=== PATIENT | female | born 1935 | race Caucasian/White ===

== ENCOUNTER 2016-11-28 09:24 | Inpatient (IN) | payer OTHER ==
[2016-11-28] VITALS (15 sets, daily range): BP systolic 109–168; BP diastolic 44–79; PULSE 47–75; RESP 16–19; O2SAT 93–98
[~2016-11-28] VITALS: Ht 160 cm; Wt 89.3 kg
[~2016-11-28 09:24] MED LIST: ALEN70TA2 PO; Bupivacaine Liposome 1.3% 20 mL Inj INFILTRATE ONE; Clindamycin 900 mg/50 mL D5W IV ONE; FURO-128 PO; HYDR-3939 PO; LEVO88TA4 PO; LISI10TA PO; Lactated Ringer's 1,000 ML IV ONE; METO25TA99 PO; Vancomycin Inj 1,000 MG in IV Premix 1 EACH IV ONE
[2016-11-28] MEDS ORDERED: ACET325T51 PO (10:23)
--- NOTE | 2016-11-28 12:36 | PCM.HPANE ---
Patient Data Surgeon Admitting Provider: Attending Provider:Parviz Jara MD Primary Care Physician:Lory Linares MD Other Provider:Yu Shuklaingham Anesthesia Reason for Visit Right Knee Pain, Phx Right Knee Replacement RIGHT KNEE PAIN, PHX RIGHT KNEE REPLACEMENT Ht/WT & BMI Height (Feet): 5 Height (Inches): 3 Weight (Kilograms): 87.180 Body Mass Index 34.00 Allergies Coded Allergies: carvedilol (Verified Allergy, Unknown, UNKNOWN, 11/21/16) tomato (Verified Allergy, Unknown, UNKNOWN, 11/21/16) Penicillins (Verified Adverse Reaction, Severe, ITCHING, 11/21/16) amlodipine (Verified Adverse Reaction, Severe, EDEMA, 11/21/16) Uncoded Allergies: DUST/MOLDS (Adverse Reaction, Unknown, UNKNOWN, 11/21/16) Past Anesthesia History Anesthesia History: Denies:: Anesthesia Reactions, Malignant Hyperthermia Diabetes History Hx Diabetes?: No MRSA MRSA: No Medications Hypertension Medication: Yes (LASIX,HYDRALAZINE,LISINOPRIL) Home Meds Incl Beta Tavares: Yes Date Beta Tavares Taken: Nov 28, 2016 Time Beta Tavares Taken: 0600 Reported Medications Acetaminophen 325 Mg [id number] Mg PO Q4H PRN For Fever Ref 0 11/28/16 Metoprolol Succinate ER 25 Mg Tab.er.24h25 Mg PO DAILY Ref 0 11/21/16 Lisinopril 10 Mg Bdqrtu86 Mg PO DAILY 30 Days Ref 0 11/21/16 Levothyroxine 88 Mcg Tslfcd98 Mcg PO DAILY Ref 0 11/21/16 Hydralazine 25 Mg Lhehfe20 Mg PO BID Ref 0 11/21/16 Furosemide (Lasix)40 Mg Dbklzk49 Mg PO DAILY 30 Days Ref 0 11/21/16 Alendronate Sodium (Fosamax)70 Mg Ykixbm83 Mg PO WEEKLY 30 Days Ref 0 11/21/16 History History of ENT Problems?: Yes HEENT History: Positive for:: Sinus Problem (seasonal allergies) Denture Type: Partial- Upper Teeth Condition: Within Normal Limits Hx of Heart Problems?: Yes Cardiovascular History: Positive for:: Edema Hypertension Denies:: Heart Murmur Other Cardiac History: HX OF MILD ANEMIA Hx of Respiratory Problem?: No Respiratory History: Denies:: Use of C-PAP Machine Hx Neurologic Problems?: No Hx of GI Problems?: Yes Other GI Pertinent History: C/OF INTERMITTANT DIARRHEA Hx of Problems?: Yes Genitourinary History: Positive for:: HX of Hemodialysis (CHRONIC RENAL INSUFFICIENCY STAGE 3-4 (STABLE LAST 1 YR)) Other Pertinent History: HAS SEEN DR. ALBERTO IN CONSULT 03/2016-PLAN F/U 1 YR Female Hx: Denies:: Currently Skin History: Denies:: History Skin Disorders? Pressure Ulcers Hx Musculoskeletal Problems?: Yes Musculoskeletal History: Positive for:: Degenerative Joint Joint Replacement (S/P B/L TKA'S C/OF RT KNEE PAIN=CURRENT PROBLEM) Osteoarthritis (OSTEOPENIA) Hx of Psycho/Social Problems?: No Hx Surgeries?: Yes (B/L TKA'S,THYROIDECTOMY) Hx Any Other Health Problems?: Yes Other History: Positive for:: Cancer (THYROID) Thyroid Disease (S/P THYROIDECTOMY FOR CA) Denies:: Endocrine Disease Hospitalization Hx Diabetes: No Hx Alcohol Use: YesHave You Smoked inLast 12 mo: No Stop/Bang Treated for Sleep Apnea?: No Do You Have a CPAP Machine?: No S-Snoring: Do You Snore Loudly: No T-Tired: feel tired, fatigued: No O-Obsered: Observed not breath: No P-Blood Pressure: treated: Yes B- Body Mass Index > 35 kg/m2: No A- Age over 50: Yes N- Neck Large Circumference: No G- Gender Male: No WENDY Total Score: 2 WENDY Risk Assessment: Low Risk, <3 Yes Risk Assessment Category Category 1A: Patient has history of documented sleep apnea, and HAS NOT received any narcotic, sedative or anesthesia administration during this stay. Category 1B: Patient has history of documented sleep apnea, and HAS received any narcotic , sedative or anesthesia administration during this stay Category 2: Patient has SUSPECTED Obstructive Sleep Apnea, and HAS received any narcotic , sedative or anesthesia administration during this stay. Category 3: Patient has SUSPECTED Obstructive Sleep Apnea and HAS NOT received narcotic, sedative or anesthesia administration during this stay. Category 4: Outpatient in Procedural Areas with known sleep apnea or who screen positive for High Risk via the STOP/BANG questionnaire. Exam Exam Vital Signs Vital Signs Date Time Temp Pulse Resp B/P Pulse Ox O2 Delivery O2 Flow Rate FiO2 11/28/16 09:50 36.4 47 18 168/49 97 Room Air General Appearance: Oriented X3 HEENT/AIRWAY: MP 2 Lungs: Normal Air Movement Heart: Regular Rate/Rhythm Meds/Labs/Diagnostics Admission Meds Current Medications Vancomycin/0.9 % Sod Chloride 1000 mg/Premix 200 ml @ 133.333 mls/hr PREOP ONCE IV Last administered on 11/28/16 10:20; Start 11/28/16 at 06:00; Stop 03/07 at 07:29; Status DC Lactated Ringer's (Lr) 1,000 ml @ 120 mls/hr Q8H20M ONCE IV Last administered on 11/28/16 09:30; Start 11/28/16 at 05:00; Stop 11/28/16 at 13:19 Plan Impression Patient chart reviewed, patient interviewed and anesthestic plan with risks, benefits, and alternatives discussed, and informed consent obtained. ASA Physical Status: ASA3 Severe Disease Anesthetic Plan: GA, Regional Block Bene/Risks/Altern/Consents: Yes HP Complete Prior to Induction: Yes Jorje Peterson MD Nov 28, 2016 12:36
[2016-11-28] MEDS ORDERED: 0.9% Sodium Chloride 100 ML ONE (12:58)
[2016-11-28] MEDS ORDERED: Tranexamic Acid 100 mg/mL 10 mL Inj ONE (12:58)
[2016-11-28] MEDS ORDERED: Bupivacaine Liposome 1.3% 20 mL Inj ONE (12:59)
[2016-11-28] MEDS ORDERED: Lactated Ringer's 500 ML IV PRN (13:34)
[2016-11-28] MEDS ORDERED: Lactated Ringer's 1,000 ML IV SCH (13:34)
[2016-11-28] MEDS ORDERED: EPHEDrine Sulfate 50 mg/mL Inj IVPUSH PRN (13:35)
[2016-11-28] MEDS ORDERED: Phenylephrine 10,000 mCg/mL Inj IVPUSH PRN (13:35)
[2016-11-28] MEDS ORDERED: Dexamethasone 4 mg/mL Inj IVPUSH PRN (13:35)
[2016-11-28] MEDS ORDERED: fentaNYL-PF 50 mCg/mL 2 mL Inj IVPUSH PRN (13:35)
[2016-11-28] MEDS ORDERED: HYDROmorphone 1 mg/mL Inj IVPUSH PRN (13:35)
[2016-11-28] MEDS ORDERED: Ondansetron 2 mg/mL 2 mL Inj IVPUSH PRN ×2 (13:35→16:30)
[2016-11-28] MEDS ORDERED: MetoCLOpramide 5 mg/mL 2 mL Inj IVPUSH PRN ×2 (13:35→16:30)
[2016-11-28] MEDS ORDERED: Gentamicin 40 mg/mL 2 mL Inj IRRIGATION ONE (13:54)
[2016-11-28] MEDS ORDERED: Bupivacaine Liposome 1.3% 20 mL Inj INFILTRATE ONE (13:55)
[2016-11-28] MEDS ORDERED: Bupivacaine-MPF 0.25% 30 mL Inj INFILTRATE ONE (13:56)
[2016-11-28 16:21] LABS: APPEARANCE,URINE CLEAR (CLEAR,HAZY); COLOR,URINE STRAW (YELLOW); OCCULT BLOOD,URINE NEGATIVE (NEGATIVE); PH,URINE 6.5 (5.0-8.0); UROBILINOGEN,URINE NORMAL (NORMAL)
[2016-11-28] MEDS ORDERED: CeFAZolin Inj 2 GM in IV Premix 1 EACH IV SCH (16:30)
[2016-11-28] MEDS ORDERED: Vancomycin Dose per Pharmacist XX ONE (16:30)
[2016-11-28] MEDS ORDERED: Magnesium Hydroxide 10 mL Oral Concentration PO PRN ×2 (16:30→21:30)
[2016-11-28] MEDS ORDERED: diphenhydrAMINE 25 mg Capsule PO PRN ×2 (16:30→21:30)
[2016-11-28] MEDS ORDERED: Sodium Biphos-Phos 133 mL Enema RECTAL PRN ×2 (16:30→21:30)
[2016-11-28] MEDS ORDERED: Polyethylene Glycol (PEG) 17 Gm Powder PO PRN (16:30)
[2016-11-28] MEDS ORDERED: Ketorolac 15 mg/mL Inj IVPUSH PRN (16:30)
[2016-11-28] MEDS: Sodium Chloride LOK Flush 10 mL Syringe IV SCH (16:30)
--- NOTE | 2016-11-28 17:50 | DRSVH ---
PROCEDURE: X-RAY RIGHT KNEE, ONE OR TWO VIEWS ([id number]) INDICATIONS: POSTOP KNEE TECHNIQUE: 2 view(s) of the knee acquired. COMPARISON: Outside Film, CR, BILATERAL KNEE MIN 4VW, 08/12/2016, 13:20. FINDINGS: Bones: Patient is status post knee joint arthroplasty. Hardware components are in expected position s. There is a slight appearance of lucency surrounding the medial aspect of the tibial hardware comp onent. Visualized bony structures are intact. Soft tissues: Overlying postoperative changes are noted. IMPRESSION: Status post right knee arthroplasty revision. Slight asymmetric lucency surrounding the m edial aspect of the tibial hardware component. This could be projectional. However, recommend interva l followup is indicated. Dictated by: Jackie Hammer M.D. on 11/28/2016 at 17:47 Approved by: Jackie Hammer M.D. on 11/28/2016 at 17:48
[2016-11-28] MEDS: Senna-Docusate 8.6-50 mg Tablet PO SCH (20:47)
[2016-11-28] MEDS ORDERED: oxyCODONE-Acetamin 5-325 mg Tablet PO PRN (21:30)
[2016-11-28] MEDS ORDERED: Ondansetron 2 mg/mL 2 mL Inj IV PRN (21:30)
[2016-11-28] MEDS ORDERED: MetoCLOpramide 5 mg/mL 2 mL Inj IV PRN (21:30)
[2016-11-28] MEDS ORDERED: Alum-Mag Hydrox-Simeth 30 mL Suspension PO PRN (21:30)
[2016-11-28] MEDS: hydrOXYzine Pamoate 25 mg Capsule PO PRN (21:41)
[2016-11-28] MEDS: Lactated Ringer's 1,000 ML IV SCH (21:44)
[2016-11-28] MEDS: CeFAZolin Inj 2 GM in IV Premix 1 EACH IV SCH (21:45)
[2016-11-29] MEDS: Sodium Chloride LOK Flush 10 mL Syringe IV SCH ×3 (00:04→16:30)
[2016-11-29 01:23] VITALS: BP 135/55; PULSE 60; RESP 16; O2SAT 95
--- NOTE | 2016-11-29 02:07 | OP ---
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 POSTOPERATIVE DIAGNOSIS(ES): Loose tibial and femoral components. SURGEON: Parviz Jara MD. SKIN GRADER: Barbara Baumann PA-C. Almond Paste Molder required due to the major complexity of the operation. PROCEDURE: 1. Complex revision arthroplasty right total knee replacement. 2. Complete synovectomy. INDICATIONS: This woman has become very disabled due to a loose and malpositioned tibial component. She elects to proceed with revision, accepting the potential risks for complication, which includes, but is not limited to, infection, thromboembolic, neurovascular events, as well as potential for implant failure. PROCEDURE: The patient was prepped and draped in the usual sterile fashion. An anteromedial approach was made. The knee dissection was carried down. The tibia and femur were noted to be grossly loose. There was diffuse metallic staining of the synovium noted, marked deformity of the tibial component positioning noted. Following full lavage of the knee, the tibial component was carefully worked loose and removed. The polyethylene had been snapped out of place initially. The femoral component was driven off with a metallic . The tibial component had been in so much varus that the stem had worked its way out through a hole in the tibia. This was encountered. The canal was found. The cement plug was removed distally and reamers were placed distally, reaming up to 15 mm distally and this provided a stable base to broach for the medium metaphyseal sleeve, which was slowly worked into an ideal position. The tibia was then cut off the top of this, allowing support of the tibial component with the deficient medial side. A #4 tibial tray was chosen and trial reductions were performed with this through the metaphyseal sleeve. The final metaphyseal sleeve was impacted securely into an excellent position and was noted to be quite stable. The femoral canal was encountered, progressively reamed up to an 18. An 18 x 100 stem was utilized for placement of a provisional D component. Trial reduction was performed and the knee was noted to be quite tight in extension; and therefore, a revised distal femoral cut was made. The D component fit excellently, trial reduction excellent stability was encountered. Complete synovectomy was performed removing all metal stained synovium. The tourniquet was let down and hemostasis was achieved. This was after 90 minutes of tourniquet time. Tourniquet was then elevated again for cementation. All meniscal tissue, osteophytes and debris was removed from the knee. Pressurized lavage was followed by pressurized cementation of the components. Excess cement was removed during the curing process. Repeat trial reduction a 12 mm posterior stabilized poly was chosen. A 15 mm x 100 stem had been used on the tibia and an 18 mm x 100 stem utilized on the femoral side with LCCK instrumentation. Patient tolerated the procedure well. The tourniquet was let down, hemostasis was achieved, and a deep drain was placed. Deep closure with #2 Quill deep, followed by 2-0 Vicryl, 3-0, and a 4-0 intracuticular stitch. Steri-Strips applied. The patient was returned to the recovery room in stable condition. Tolerated procedure well. There were no complications.
[2016-11-29] MEDS: Ketorolac 15 mg/mL Inj IV SCH ×3 (02:32→14:30)
[2016-11-29] MEDS ORDERED: Vancomycin Inj 1,250 MG in 0.9% Sodium Chloride 250 ML IV ONE (03:00)
--- NOTE | 2016-11-29 05:02 | NUR ---
Admission Pt admitted to [facility] at 1830 from PACU. Rec'd report from off going dayshift nurse. Pt is post op right TKA revision. A/O x3, making needs known. Eating dinner just after arrival and tolerating PO intake with no c/o NV. Pt has NADINE wrap to right knee, CDI with hemovac clamped. States pain is 3/10 and tolerable. Orders reviewed and sent to pharmacy. IV patent, started IV fluids. Oriented to room, call light and bed controls. Downey cath patent draining clear alexander urine to gravity. Family at bedside. Encouraged cough and deep breathing. Care continues
[2016-11-29] MEDS: CeFAZolin Inj 2 GM in IV Premix 1 EACH IV SCH (05:19)
[2016-11-29 06:09] VITALS: BP 118/56; PULSE 64; RESP 16; O2SAT 94
[2016-11-29 06:54] LABS: BASOPHILS % (AUTO) 0.1 % (0-3); EOSINOPHILS % (AUTO) 0 % (0-5); MONOCYTES % (AUTO) 5.3 % (4-12); Mean Corpuscular Hemoglobin 29.1 pg (27.0-35.0); Mean Corpuscular Volume 90.6 fL (81-100); NEUTROPHILS % (AUTO) 86.3 % (40-74); Platelet Count 183 bil/L (150-400)
--- NOTE | 2016-11-29 07:39 | PCM.ANEP1 ---
Post Anesthesia PACU Phase 1 Assessment Vital Signs Vital Signs Date Time Temp Pulse Resp B/P Pulse Ox O2 Delivery O2 Flow Rate FiO2 11/29/16 06:09 36.9 64 16 118/56 94 Nasal Cannula 3.00 11/29/16 01:23 36.6 60 16 135/55 95 Nasal Cannula 3.00 Anesthetic Administered: GA Level of Alertness: Awake, talking KIRBY's with Equal Strength: No (right leg tka) Pain: No Pain Scale Score: 3 Nausea or Vomiting: No CV Function & Hydration Stable: Yes Airway Device: Lungs: Normal Air Movement PACU Phase 2 Assessment Patient Instructions Provided: N/A Jorje Peterson MD Nov 29, 2016 07:39
[2016-11-29 08:04] VITALS: BP 107/50; PULSE 63; RESP 18; O2SAT 95
[2016-11-29] MEDS: Senna-Docusate 8.6-50 mg Tablet PO SCH ×2 (08:57→20:19)
[2016-11-29] MEDS: hydrOXYzine Pamoate 25 mg Capsule PO PRN ×2 (08:57→12:57)
[2016-11-29] MEDS: MeTOProlol XL 25 mg ER24 Tablet PO SCH (11:00)
[2016-11-29 11:03] VITALS: BP 115/58; PULSE 73
--- NOTE | 2016-11-29 11:49 | NUR ---
Blood Pressure Morning blood pressure low. PA notified. Held Lisinopril. Will continue to monitor.
--- NOTE | 2016-11-29 11:56 | NUR ---
Evaluation completed. Please go to "Notes" then click on "Assessments and Notes" (bottom left corner of screen). Then select appropriate discipline tab on top of screen.
--- NOTE | 2016-11-29 12:30 | NUR ---
Social Work- Initial Assessment/Multi-Disciplinary Rounds Data: See Initial Assessment. Pt is a 81 year old female admitted 11/28/16 for TKA Revision. Pt's insurance is [employer]. Pt's PCP is Lory Linares MD. Pt's readmit risk score is 1- low risk. Pt's listed NOK is Domitlia Gatica, daughter, . Pt has no DPOA, declined information at bedside. Per multi-disciplinary rounds, pt is POD 1. Ortho is primary on pt. No social work needs identified in rounds. SW met with pt and family at bedside to complete initial assessment. Pt's capacity for self- care was assessed. Pt alert and oriented x3. Pt resides in [place] in a single story home with her spouse where she is independent at baseline. Pt drives. 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 Pt's son and daughter in law reside on the property as well. Pt's designated discharge support person is her son Pollo [phone]. Pt does not typically use any DME at home but has a cane, fww, wheelchair, and BSC at home. Pt has no HH history. Pt has history at SNF formerly called [facility]. Pt has no LTC or VA benefits. Pt's family is available to assist with needs at home. Pt has scheduled her outpt PT. Pt denied any issues obtaining prescriptions in the past. SW does not have concerns related to pt returning to former environment or pt's capacity for self-care due to her supportive family, physical independence, and her excellent plan at home post hospitalization. SW provided phone number and plan on whiteboard. SW provided Discharge Checklist and instructed patient to contact [facility] if needs are identified. Pt anticipated to discharge home with family to assist and transport via POV. No social work needs identified at this time. SW will continue to follow. Assessment: Pt who is independent at baseline and who will receive outpt PT. Plan: SW does not have concerns related to pt returning to former environment or pt's capacity for self-care due to her supportive family, physical independence, and her excellent plan at home post hospitalization. Pt anticipated to discharge home with family to assist and transport via POV. No social work needs identified at this time. SW will continue to follow. MARTIN Tipton Addendum: 11/29/16 at 1238 by KEELY BLANCHARD Amended: Links added.
[2016-11-29 12:56] VITALS: BP 124/62; PULSE 67; RESP 18; O2SAT 98
[2016-11-29] MEDS: Lactated Ringer's 1,000 ML IV SCH (14:10)
--- NOTE | 2016-11-29 15:03 | PCM.PNORTH ---
Subjective Date of Service: Nov 29, 2016 Visit Information: Reason for Visit Right Knee Pain, Phx Right Knee Replacement Surgery/Surgery Date R TKA REVISION 11/28/16 Post-Op Day # 1 Date of Admission: Nov 28, 2016 at 17:51 Hospital Day # Subjective Patient states she is having pain in her knee but it is tolerable. She states she just finished with physical therapy and walked down the price and back. She is having more pain right now than usual, as expected from the activity. Postop General: No Complaints Pain Management: PO Objective Exam Objective Laying in bed Vital Signs and I/O Vital Sign - Last Date Time Temp Pulse Resp B/P Pulse Ox O2 Delivery O2 Flow Rate FiO2 11/29/16 13:28 Room Air 11/29/16 12:56 36.9 67 18 124/62 98 11/29/16 06:09 3.00 Intake and Output 11/28/16 11/28/16 11/29/16 Cumulative From/Thru 15:00 23:00 07:00 11/21/16 10:39 - 11/29/16 06:21 Intake Total 850 ml 160 ml 724 ml 1734 ml Output Total 275 ml 30 ml 540 ml 845 ml Balance 575 ml 130 ml 184 ml 889 ml Intake IV Total 850 ml 160 ml 724 ml 1734 ml Output Urine Total 75 ml 30 ml 450 ml 555 ml Drainage Total 90 ml 90 ml Estimated Blood Loss 200 ml 200 ml Lab & Micro Results Laboratory Tests Test 11/28/16 15:47 11/29/16 06:20 Urine Color Straw (YELLOW) Urine Appearance Clear (CLEAR,HAZY) Urine pH 6.5 (5.0-8.0) Urine Specific [place] 1.020 (1.003-1.035) Urine Protein Negativemg/dL (NEG,TRACE) Urine Glucose (UA) Negativemg/dL (NEGATIVE) Urine Ketones Negativemg/dL (NEGATIVE) Urine Occult Blood Negative (NEGATIVE) Urine Nitrite Negative (NEGATIVE) Urine Bilirubin Negative (NEGATIVE) Urine Urobilinogen Normalmg/dL (NORMAL) Urine Leukocyte Esterase Negative (NEGATIVE) Urine RBC 0-2/hpf (0-2) Urine WBC 0-5/hpf (0-5) Urine Epithelial Cells None/hpf (NONE-MOD) Urine Crystals None seen (NONE SEEN) Urine Bacteria None/hpf (NONE-FEW) Urine Hyaline Casts None/lpf (NONE) Urine Granular Casts None seen (NONE SEEN) Urine Waxy Casts None seen (NONE SEEN) Urine Red Blood Cell Casts None seen (NONE SEEN) Urine White Blood Cell Casts None seen (NONE SEEN) Urine Mucus None seen (None Seen) Urine Trichomonas None seen (NONE SEEN) Urine Yeast None (NONE SEEN) Urinalysis Comment None Urine Culture Reflexed Not indicated White Blood Count 10.1th/mm3 (3.8-10.1) Red Blood Count 3.09mil/mm3 (3.90-5.20) Hemoglobin 9.0g/dL (12.0-15.6) Hematocrit 28.0% (35.0-46.0) Mean Corpuscular Volume 90.6fL (81-100) Mean Corpuscular Hemoglobin 29.1pg (27.0-35.0) Mean Corpuscular Hemoglobin Concent 32.1% (32.0-37.0) Red Cell Distribution Width 13.1% (12.3-15.4) Platelet Count 183bil/L (150-400) Neutrophils (%) (Auto) 86.3% (40-74) Lymphocytes (%) (Auto) 8.2% (14-46) Monocytes (%) (Auto) 5.3% (4-12) Eosinophils (%) (Auto) 0% (0-5) Basophils (%) (Auto) 0.1% (0-3) Result Diagram: 11/29/16 0620 General Appearance: Alert, Oriented X3, Cooperative, No Acute Distress Extremities: Distal Pulses Palpable, No Compartment Syndrom Noted, Thigh & Calf Soft/Nontender Postop Sensory Motor: Distal Motor Intact, Movement in Toes, Distal Sensation Intact, NVI Distally SURGICAL WOUND : Wound Location/Description Perioperative dressing clean dry and intact Drain Location Body Site: Knee Wound Drainage Type: Hemovac Activity: Ambulate with PT Assessment & Plan Impression Postop 2 #1 right knee total arthroplasty revision Problems: Plan Weightbearing: Weightbearing as tolerated with a front-wheeled walker DVT prophylaxis: Aspirin 81 mg twice a day 6 weeks Physical therapy for transfers, progressive ambulation, strengthening Wound care: Perioperative dressings will be changed to an island dressing tomorrow. Patient has brought her compression stockings from home to use after her dressing change. Analgesia: Oral analgesia Discharge plan: Discharge home tomorrow. Start outpatient physical therapy within one week. Follow-up plan: In 2 weeks at [facility] with PA for wound check and at [address] Jara with x-rays Rachna Wheat PA-C Nov 29, 2016 15:03
--- NOTE | 2016-11-29 17:59 | NUR ---
Hemovac Hemovac d/c'd intact.
[2016-11-29 20:06] VITALS: BP 146/67; PULSE 56; RESP 18; O2SAT 94
[2016-11-30] MEDS: Sodium Chloride LOK Flush 10 mL Syringe IV SCH ×2 (00:30→09:00)
--- NOTE | 2016-11-30 01:51 | NUR ---
ACTIVITY: Pt. has been up to the bathroom voiding, reported a medium stool this evening. Tolerating ambulation well, one person SBA and the FWW. Declined pain medication this shift. Mena CONTRERAS, on RA. A & O, vss. On going care.
[2016-11-30 04:47] VITALS: BP 146/69; PULSE 52; RESP 17; O2SAT 94
[2016-11-30] MEDS: Lactated Ringer's 1,000 ML IV SCH (06:50)
--- NOTE | 2016-11-30 07:54 | PCM.PNORTH ---
Subjective Date of Service: Nov 30, 2016 Visit Information: Reason for Visit Right Knee Pain, Phx Right Knee Replacement Surgery/Surgery Date R TKA REVISION 11/28/16 Post-Op Day # 2 Date of Admission: Nov 28, 2016 at 17:51 Hospital Day # Subjective Patient is seen lying in bed. She states she ambulated with physical therapy and the hallway yesterday 120 feet. She complains of cramping type pain in hte thigh muscles. Pain is well-controlled with Percocet and Vistaril. She feels that she will be ready for discharge home later today. Postop General: No Complaints Pain Management: PO Objective Exam Objective Patient is seen lying in bed Vital Signs and I/O Vital Sign - Last Date Time Temp Pulse Resp B/P Pulse Ox O2 Delivery O2 Flow Rate FiO2 11/30/16 04:47 36.7 52 17 146/69 94 Room Air 11/29/16 06:09 3.00 Intake and Output 11/29/16 11/29/16 11/30/16 Cumulative From/Thru 15:00 23:00 07:00 11/21/16 10:39 - 11/30/16 04:47 Intake Total 598 ml 200 ml 2532 ml Output Total 700 ml 1545 ml Balance 598 ml -500 ml 987 ml Intake Oral 200 ml 200 ml IV Total 598 ml 2332 ml Output Urine Total 700 ml 1255 ml Drainage Total 90 ml Estimated Blood Loss 200 ml # Bowel Movements 1 1 Result Diagram: 11/29/16 0620 General Appearance: Alert, Oriented X3, Cooperative, No Acute Distress Extremities: Distal Pulses Palpable, Thigh & Calf Soft/Nontender Postop Sensory Motor: Distal Motor Intact, Movement in Fingers, Distal Sensation Intact, NVI Distally SURGICAL WOUND : Wound Location/Description Right knee: Surgical dressing is removed. The wound is clean and dry. No erythema present. There is a small amount of serous drainage at the drain site. A new dressing was applied with Island dressing. Silverlon was currently available. The drain site was dressed with 2 x 2 gauze and Tegaderm Drain Location Body Site: Knee Activity: Ambulate with PT Catheters: None Assessment & Plan Impression POD #2 Right total knee arthroplasty revision Problems: Plan Weightbearing: Weightbearing as tolerated with walker DVT prophylaxis: aspirin 81 mg twice a day 6 weeks Physical therapy for transfers, progressive ambulation, therapeutic exercise. Patient is progressing well with physical therapy. Wound care: Dressings changed today to an island dressing. Prior to discharge, nursing will apply a Silverlon dressing and a new island dressing. Applying thigh-high SARAHI hose prior to discharge Discharge plan: Discharge home today. Start outpatient physical therapy next week Discharge instructions are reviewed with the patient Follow-up plan: In 2 weeks at [facility] with TISH for wound check and at [address] Jara with x-rays Pain Management: Percocet, oxycodone, Vistaril VTE Prophylaxis: SCDs Resuscitation Status: CPR: Attempt Resuscitation DonaldsonBarbara Gordon PA-C Nov 30, 2016 07:54
[2016-11-30 07:55] VITALS: BP 138/56; PULSE 56; RESP 18; O2SAT 97
[2016-11-30] MEDS: MeTOProlol XL 25 mg ER24 Tablet PO SCH (08:30)
[2016-11-30] MEDS: Senna-Docusate 8.6-50 mg Tablet PO SCH (08:30)
[2016-11-30] MEDS: HYDROcodone-APAP 5-325 mg Tablet PO PRN ×2 (09:03→17:05)
--- NOTE | 2016-11-30 09:38 | PCM.DIORTH ---
Ortho Discharge Instruction Date of Service: Nov 30, 2016 Dates of Hospitalization Date of Hospital Admission Nov 28, 2016 at 17:51 Providers Admitting Physician: Parviz Jara MD Primary Care Physician: Lory Linares MD Attending Physician: Parviz Jara MD Diet Discharge Diet: No restrictions Activity Discharge Activity-General: Be up and about, Balance rest and activity, Elevate & ice extremity (apply ice 6-10 times a day), May drive in (1 month) Right Lower Extremity: Weight Bearing as tolerated Discharge Assist Device: Front Wheeled Walker Dressing and Incisional Care Discharge Dressing Care: Keep dressing clean, dry & intact Discharge Hygiene: May shower (wrap knee in plastic wrap), DO NOT soak incision under water (for 2 weeks), NO bathtub, hot tub or whirlpool (for 2 weeks) Additional Instructions Discharge Instructions Weightbearing: Weightbearing as tolerated with walker DVT prophylaxis: aspirin 81 mg twice a day 6 weeks Wound care: change dressings in 2 days with an island dressing. Reuse the silver dressing for 1 week. Handle it only by the corners. The drain site dressing will not need a bandage. Wear thigh-high compression stockings 1 month on the surgical leg. Wear for 2 weeks on the left leg Showering: cover the wound with plastic wrap. If the dressing gets wet, apply a new dressing. Every hour of the day you are awake get up and do something for the knee: either walk, do exercises or work on bending and straightening Start outpatient physical therapy next week Follow Up Plan Follow Up Plan Follow-up plan: In 2 weeks at [facility] with TISH for wound check and at [address] aJra with x-rays Call your provider for: Fever, Chills, Shortness of breath, Vomitting, Drainage at incision, Wound redness (that is spreading), Increasing pain (for no reason) Barbara Baumann PA-C Nov 30, 2016 09:38
[2016-11-30] MEDS ORDERED: HYDR-3797 PO (09:44)
[2016-11-30] MEDS ORDERED: ASPI81TA3 PO (09:44)
[2016-11-30] MEDS ORDERED: OXYC1TAB24 PO (09:44)
[2016-11-30] MEDS ORDERED: DOCU-41 PO (09:44)
--- NOTE | 2016-11-30 09:50 | PCM.DC.ORT ---
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 Antibiotic prophylaxis consisting of Ancef and vancomycin. The surgeon was Dr. Jara. A Downey was placed perioperatively. Patient tolerated the procedure well and was transferred to recovery room in stable condition. Downey was discontinued on postop day 1. Patient had physical therapy to work on ambulation and transfers. Weightbearing as tolerated with walker. Pain was managed with Dilaudid, Percocet, Vistaril, Toradol. DVT prophylaxis: Aspirin 81 mg twice a day, SCDs, compression stockings. Patient progressed well with physical therapy and on POD-2 was discharged home. Follow- up: at [facility] 2 weeks postop for wound check and at [address] Jara with x-ray Diagnosis at Time of Discharge Status post right knee revision arthroplasty Problems: Discharge Instructions: Activity Discharge Activity-General: Be up and about, Balance rest and activity, Elevate & ice extremity (apply ice 6-10 times a day), May drive in (1 month) Right Lower Extremity: Weight Bearing as tolerated Discharge Assist Device: Front Wheeled Walker Dressing and Incisional Care Discharge Dressing Care: Keep dressing clean, dry & intact Discharge Hygiene: May shower (wrap knee in plastic wrap), DO NOT soak incision under water (for 2 weeks), NO bathtub, hot tub or whirlpool (for 2 weeks) Additional Instructions Weightbearing: Weightbearing as tolerated with walker DVT prophylaxis: aspirin 81 mg twice a day 6 weeks Wound care: change dressings in 2 days with an island dressing. Reuse the silver dressing for 1 week. Handle it only by the corners. The drain site dressing will not need a bandage. Wear thigh-high compression stockings 1 month on the surgical leg. Wear for 2 weeks on the left leg Showering: cover the wound with plastic wrap. If the dressing gets wet, apply a new dressing. Every hour of the day you are awake get up and do something for the knee: either walk, do exercises or work on bending and straightening Start outpatient physical therapy next week Follow-up at [facility] in 2 weeks with [facility] for wound check, and at [address] Jara with x-ray Alendronate Sodium (Fosamax) 70 Mg Tablet 70 MG PO WEEKLY Aspirin Chew (Aspirin Chew) 81 Mg Chew 81 MG PO BID take for 6 weeks after surgery Docusate Sodium (Colace) 100 Mg Capsule 100 MG PO BID PRN PRN For Constipation Furosemide (Lasix) 40 Mg Tablet 40 MG PO DAILY Hydralazine (Hydralazine) 25 Mg Tablet 25 MG PO BID Hydroxyzine Pamoate (HydrOXYzine Pamoate) 25 Mg Capsule 25 MG PO Q6H PRN PRN For Spasm Levothyroxine (Levothyroxine) 88 Mcg Tablet 88 MCG PO DAILY Lisinopril (Lisinopril) 10 Mg Tablet 10 MG PO DAILY Metoprolol Succinate ER (Metoprolol Succinate ER) 25 Mg Tab.er.24h 25 MG PO DAILY oxyCODONE-Acetaminophen 5-325 mg (oxyCODONE-Acetaminophen 5-325 mg) 1 Each Tablet 1-2 TAB PO Q4H PRN PRN For Severe Pain Max 8 per day Barbara Baumann PA-C Nov 30, 2016 09:50
--- NOTE | 2016-11-30 11:44 | NUR ---
Social Work- Discharge/Multi-Disciplinary Rounds Data: EMR reviewed. Pt is on day 2 of hospitalization for TKA revision. Discharge orders are active. Per multi-disciplinary rounds pt is medically stable to discharge. Pt is POD 2. PT worked with pt and pt ambulated 120 feet with fww. No social work needs identified. SW met with pt at bedside regarding discharge plan. Pt is agreeable to discharge and already has her outpt PT set up. Pt denied any questions or concerns related to discharge. Pt to discharge home with family to transport via POV. No discharge needs identified. Assessment: Pt who is independent at baseline and requires outpt PT. Plan: Pt to discharge home with family to transport via POV. Pt will attend outpt PT. No discharge needs identified. Nella Duque MSW
[2016-11-30 17:01] VITALS: BP 170/67; PULSE 59; RESP 18; O2SAT 96
--- NOTE | 2016-11-30 17:24 | NUR ---
Discharge Pt to discharge to home with family; A&Ox3, able to KIRBY, up with steady gait with FWW, thigh highs placed, 1 IV access discontinued. Pt given written and verbal instructions to which she and family member at state verbal understanding for discharge instructions and medications and dosages to be taken and times. Pt encouraged to not submerge R leg in water of any kind, to wrap and keep dressing CDI when showering. Dressing changes q 2 days; extra dressing materials given before discharge with verbal and hands on instruction of changes to which pt verbal demonstrated understanding. Rx's with pt at time of discharge, copies in chart. No restrictions on diet; pt to be up and about balancing activity and rest, weight bearing as tolerated, DBVT prolylaxis asa 81mg PO BID for 6 weeks, wear thigh high compression stockings for 2 weeks. F/u with [facility] in 2 weeks with [facility] and 6 weeks with dulce maria and Dr Jara. Pt and family members state understanding; all belongings with pt and family members at time of discharge and wheeled off unit by aide.
== END 2016-11-30 17:28 | disposition home or self-care (01) | DRG 468 ==
LOC: SAS 09:24 → EDUNIT# 11:30 → OSC 17:51
PROVIDERS: ADMIT Orthopaedic Surgery; ATTEND Orthopaedic Surgery
PROC: 0SPC09Z Removal of Liner from Right Knee Joint, Open Approach (ICD-10-PCS; 2016-11-28)
PROC: 0SPC0JZ Removal of Synthetic Substitute from Right Knee Joint, Open Approach (ICD-10-PCS; 2016-11-28)
PROC: 0SUC09Z Supplement Right Knee Joint with Liner, Open Approach (ICD-10-PCS; 2016-11-28)
PROC: 0SRC0J9 Replacement of Right Knee Joint with Synthetic Substitute, Cemented, Open Approach (ICD-10-PCS; principal; 2016-11-28 12:00)
DX: T84.032A Mechanical loosening of internal right knee prosthetic joint, initial encounter (principal); I12.9 Hypertensive chronic kidney disease with stage 1 through stage 4 chronic kidney disease, or unspecified chronic kidney disease; N18.3 Chronic kidney disease, stage 3 (moderate); E89.0 Postprocedural hypothyroidism